=== PATIENT | female | born 2005 | race Hispanic/Latino ===

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

== ENCOUNTER 2023-02-11 00:24 | Emergency (ER) | payer MEDICAID, OTHER ==
[2023-02-11 01:20] LABS: Hematocrit 26.4 % (36.0-47.0); Hemoglobin 7.2 g/dL (12.0-16.0); Manual Diff?? YES; Mean Corpuscular HGB CONC 27.3 g/dL (32.0-36.0); Mean Corpuscular Hemoglobin 19.9 pg (25.0-35.0); Mean Corpuscular Volume 73.1 fl (78.0-98.0); Platelet Count 171 10x3/uL (130-400); RBC Distribution Width 16.5 % (11.5-14.5); Red Blood Cell (RBC) Count 3.61 mill/uL (4.00-5.20); White Blood Cell (WBC) Count 8.8 10x3/uL (4.8-10.8)
[2023-02-11 01:23] LABS: Delete Auto Diff?? YES
[2023-02-11 01:34] LABS: Bacteria/HPF None Seen HPF (None Seen); Bilirubin Negative (Negative); Blood, Urine Negative (Negative); CAUTI Indications for Culture Pregnancy; Clarity Clear (Clear); Glucose, Urine (Dipstick) Normal (Negative); Ketone, Urine Trace mg/dL (Negative); Leukocyte 500 Leu/uL (Negative); Nitrite Negative (Negative); Protein, Urine (Dipstick) 30 mg/dL (Neg-Trace); RBC/HPF 0-3 HPF (0-3); Specific Gravity, Urine 1.029 (1.002-1.036); Urobilinogen 3 mg/dL (Less than 2); pH, Urine 6.5 (5.0-9.0)
[2023-02-11 01:37] LABS: Urine Culture Reflex Yes Yes
[2023-02-11 01:43] LABS: Band 6 % (5-11); Hypochromia SLIGHT = 6-15 cells (100X) (0-5/hpf); Large Platelets SLIGHT (None Seen); Lymphocytes 20 % (28-48); Microcytosis SLIGHT = 6-15 cells (100X) (0-5/hpf); Monocytes 1 % (0-4); Neutrophil 73 % (31-61); Nucleated RBC (Manual Ct) 1 % (0)
[2023-02-11 01:44] LABS: Platelet Adequacy Comment Appears Adequate
[2023-02-11] MEDS ORDERED: Sodium Chloride 0.9% 100 ML ONE (02:31)
[2023-02-11] MEDS ORDERED: cefTRIAXone (ROCEPHIN) 2 GM VIAL ONE (02:31)
== END 2023-02-11 03:36 | disposition short-term general hospital (02) ==
LOC: ERS 00:24
DX: O99.013 Anemia complicating pregnancy, third trimester (principal); D64.9 Anemia, unspecified; Z3A.34 34 weeks gestation of pregnancy
CPT/HCPCS: 36415; 81001; 85025; 86850; 86900; 86901; 87086; 96365; J0696; J3490